=== PATIENT | male | born 1965 | race Caucasian/White ===

== ENCOUNTER 2021-02-06 11:23 | Outpatient (REF) | payer OTHER, SELFPAY ==
[2021-02-06 13:54] LABS: MANUAL DIFF FLAG NO
[2021-02-06 14:04] LABS: Basophils Absolute Auto 0.1 X10*3/uL (0.0-0.2); Basophils Percent Auto 1.2 % (0-2); Eosinophils Absolute Auto 0.3 X10*3/uL (0.0-0.4); Eosinophils Percent Auto 3.6 % (0-4); Hematocrit 45.4 % (42-52); Hemoglobin 15.3 g/dl (14.0-18.0); Imm Gran Abs Auto 0.03 X10*3/uL (0.00-0.03); Imm Gran Pct Auto 0.4 % (0.0-0.4); Lymphocytes Absolute Auto 1.9 X10*3/uL (1.2-4.9); Lymphocytes Percent Auto 23.8 % (20-40); Mean Corpuscular HGB Conc 33.7 g/dl (31.0-36.0); Mean Corpuscular Hemoglobin 32.2 pg (27.0-33.0); Mean Corpuscular Volume 95.6 fL (80-98); Mean Platelet Volume 12.5 fL (9.4-12.4); Monocytes Percent Auto 12.5 % (2-11); Neutrophils Absolute Auto 4.8 X10*3/uL (2.0-8.3); Neutrophils Percent Auto 58.5 % (45-73); Platelet Count 272 X10*3/uL (160-400); Red Blood Count 4.75 X10*6/uL (4.60-5.80); Red Cell Distribution Width 12.1 % (11.0-16.0); White Blood Count 8.1 X10*3/uL (4.8-10.8)
[2021-02-06 14:29] LABS: Valproate 14.5 mcg/mL (50.0-100.0)
[2021-02-06 14:42] LABS: Alanine Aminotransferase 33 U/L (0-40); Albumin Level 4.5 g/dL (3.5-5.0); Alkaline Phosphatase 74 U/L (39-117); Anion Gap 17 (12-20); Aspartate Amino Transferase 28 U/L (5-37); Bilirubin Total 0.6 mg/dL (0.0-1.0); Blood Urea Nitrogen 17 mg/dL (9-16); Calcium 10.1 mg/dL (8.4-10.2); Carbon Dioxide 24 mmol/L (22-29); Chloride 105 mmol/L (96-108); Cholesterol 235 mg/dL; Estimated Glomerular Filt Rate > 60; Gamma Glutamyl Transpeptidase 208 U/L (11-51); Glucose Fasting 101 mg/dL (60-99); HDL Cholesterol 35 mg/dL; LDL Cholesterol Calculated 138 mg/dl; Potassium 4.6 mmol/L (3.3-5.1); Sodium 141 mmol/L (135-145); Total Protein 7.3 g/dL (6.5-8.0); Triglycerides 313 mg/dL
[2021-02-06 15:00] LABS: Folate 5.9 ng/mL (> or = 4.0); Vitamin B12 397 pg/mL (200-900)
== END 2021-02-06 11:24 | disposition home or self-care (01) ==
LOC: HO.HMGCLDS 11:23
PROVIDERS: PCP Internal Medicine; Visit Provider Nurse Practitioner Psychiatric/Mental Health
DX: F31.4 Bipolar disorder, current episode depressed, severe, without psychotic features (principal); Z79.899 Other long term (current) drug therapy
CPT/HCPCS: 36415; 80053; 80061; 80164; 82607; 82746; 82977; 85025

== ENCOUNTER 2021-06-03 07:26 | Outpatient (REF) | payer OTHER, SELFPAY ==
[2021-06-03 11:31] LABS: MANUAL DIFF FLAG NO
[2021-06-03 11:37] LABS: Basophils Absolute Auto 0.1 X10*3/uL (0.0-0.2); Basophils Percent Auto 1.1 % (0-2); Eosinophils Absolute Auto 0.3 X10*3/uL (0.0-0.4); Eosinophils Percent Auto 4.2 % (0-4); Hematocrit 48.5 % (42-52); Hemoglobin 16.5 g/dl (14.0-18.0); Imm Gran Abs Auto 0.02 X10*3/uL (0.00-0.03); Imm Gran Pct Auto 0.3 % (0.0-0.4); Lymphocytes Absolute Auto 2.1 X10*3/uL (1.2-4.9); Mean Corpuscular Hemoglobin 32.3 pg (27.0-33.0); Mean Corpuscular Volume 94.9 fL (80-98); Mean Platelet Volume 12.7 fL (9.4-12.4); Monocytes Absolute Auto 0.8 X10*3/uL (0.1-1.2); Monocytes Percent Auto 13.1 % (2-11); Neutrophils Percent Auto 48.3 % (45-73); Platelet Count 235 X10*3/uL (160-400); Red Blood Count 5.11 X10*6/uL (4.60-5.80); Red Cell Distribution Width 12.7 % (11.0-16.0); White Blood Count 6.3 X10*3/uL (4.8-10.8)
[2021-06-03 11:58] LABS: Alanine Aminotransferase 31 U/L (0-40); Albumin Level 4.4 g/dL (3.5-5.0); Alkaline Phosphatase 64 U/L (39-117); Anion Gap 17 (12-20); Aspartate Amino Transferase 28 U/L (5-37); Bilirubin Total 0.6 mg/dL (0.0-1.0); Blood Urea Nitrogen 20 mg/dL (9-16); Calcium 9.9 mg/dL (8.4-10.2); Carbon Dioxide 25 mmol/L (22-29); Chloride 104 mmol/L (96-108); Cholesterol 238 mg/dL; Estimated Glomerular Filt Rate > 60; Gamma Glutamyl Transpeptidase 39 U/L (11-51); Glucose Fasting 93 mg/dL (60-99); HDL Cholesterol 44 mg/dL; LDL Cholesterol Calculated 172 mg/dl; Potassium 4.5 mmol/L (3.3-5.1); Sodium 141 mmol/L (135-145); Total Protein 7.2 g/dL (6.5-8.0); Triglycerides 113 mg/dL
[2021-06-03 11:59] LABS: Valproate 44.3 mcg/mL (50.0-100.0)
== END 2021-06-03 07:27 | disposition home or self-care (01) ==
LOC: HO.HMGCLDS 07:26
PROVIDERS: PCP Internal Medicine; Visit Provider Nurse Practitioner Psychiatric/Mental Health
DX: F31.4 Bipolar disorder, current episode depressed, severe, without psychotic features (principal)
CPT/HCPCS: 36415; 80053; 80061; 80164; 82977; 85025

== ENCOUNTER 2021-07-22 06:30 | Outpatient (REF) | payer OTHER, SELFPAY ==
[2021-07-22 11:57] LABS: Valproate 28.1 mcg/mL (50.0-100.0)
[2021-07-22 11:59] LABS: Alanine Aminotransferase 25 U/L (0-40); Albumin Level 4.2 g/dL (3.5-5.0); Alkaline Phosphatase 69 U/L (39-117); Aspartate Amino Transferase 22 U/L (5-37); Bilirubin Direct 0.2 mg/dL (0.0-0.5); Bilirubin Total 0.3 mg/dL (0.0-1.0)
== END 2021-07-22 06:31 | disposition home or self-care (01) ==
LOC: HO.HMGCLDS 06:30
PROVIDERS: PCP Internal Medicine; Visit Provider Nurse Practitioner Psychiatric/Mental Health
DX: F31.4 Bipolar disorder, current episode depressed, severe, without psychotic features (principal)
CPT/HCPCS: 36415; 80076; 80164

== ENCOUNTER 2021-09-24 12:32 | Outpatient (REF) | payer OTHER, SELFPAY ==
[2021-09-24 14:34] LABS: Valproate 86.9 mcg/mL (50.0-100.0)
== END 2021-09-24 12:33 | disposition home or self-care (01) ==
LOC: HO.HMGCLDS 12:32
PROVIDERS: PCP Internal Medicine; Visit Provider Nurse Practitioner Psychiatric/Mental Health
DX: F31.4 Bipolar disorder, current episode depressed, severe, without psychotic features (principal); Z79.899 Other long term (current) drug therapy
CPT/HCPCS: 36415; 80164

== ENCOUNTER 2021-12-31 08:46 | Outpatient (REF) | payer OTHER, SELFPAY ==
[2021-12-31 11:42] LABS: MANUAL DIFF FLAG NO
[2021-12-31 11:57] LABS: Basophils Absolute Auto 0.1 X10*3/uL (0.0-0.2); Basophils Percent Auto 1.1 % (0-2); Eosinophils Absolute Auto 0.2 X10*3/uL (0.0-0.4); Eosinophils Percent Auto 2.5 % (0-4); Hematocrit 45.7 % (42.0-52.0); Hemoglobin 15.3 g/dl (14.0-18.0); Imm Gran Abs Auto 0.04 X10*3/uL (0.00-0.03); Imm Gran Pct Auto 0.7 % (0.0-0.4); Lymphocytes Absolute Auto 1.7 X10*3/uL (1.2-4.9); Mean Corpuscular HGB Conc 33.5 g/dl (31.0-36.0); Mean Corpuscular Hemoglobin 33.2 pg (27.0-33.0); Mean Corpuscular Volume 99.1 fL (80.0-98.0); Mean Platelet Volume 12.3 fL (9.4-12.4); Monocytes Absolute Auto 0.7 X10*3/uL (0.1-1.2); Neutrophils Absolute Auto 3.5 x10*3/uL (2.0-8.3); Neutrophils Percent Auto 56.7 % (45-73); Platelet Count 208 X10*3/uL (160-400); Red Blood Count 4.61 X10*6/uL (4.60-5.80); Red Cell Distribution Width 12.1 % (11.0-16.0); White Blood Count 6.1 X10*3/uL (4.8-10.8)
[2021-12-31 12:20] LABS: Alanine Aminotransferase 22 U/L (0-40); Albumin Level 4.3 g/dL (3.5-5.0); Alkaline Phosphatase 64 U/L (39-117); Anion Gap 15 (12-20); Aspartate Amino Transferase 30 U/L (5-37); Bilirubin Direct 0.3 mg/dL (0.0-0.5); Bilirubin Total 0.7 mg/dL (0.0-1.0); Blood Urea Nitrogen 28 mg/dL (9-16); Calcium 9.9 mg/dL (8.4-10.2); Carbon Dioxide 23 mmol/L (22-29); Chloride 106 mmol/L (96-108); Estimated Glomerular Filt Rate > 60; Gamma Glutamyl Transpeptidase 66 U/L (11-51); Glucose Random 115 mg/dL (60-115); Potassium 4.4 mmol/L (3.3-5.1); Sodium 140 mmol/L (135-145); Total Protein 7.3 g/dL (6.5-8.0)
[2021-12-31 12:59] LABS: Folate 6.8 ng/mL (> or = 4.0); Vitamin B12 339 pg/mL (200-900)
== END 2021-12-31 08:47 | disposition home or self-care (01) ==
LOC: HO.HMGCLDS 08:46
PROVIDERS: Visit Provider Nurse Practitioner Psychiatric/Mental Health
DX: F31.4 Bipolar disorder, current episode depressed, severe, without psychotic features (principal)
CPT/HCPCS: 36415; 80053; 82248; 82607; 82746; 82977; 85025

== ENCOUNTER 2022-04-29 07:10 | Outpatient (REF) | payer OTHER, SELFPAY ==
[2022-04-29 11:16] LABS: MANUAL DIFF FLAG NO
[2022-04-29 11:36] LABS: Basophils Absolute Auto 0.1 X10*3/uL (0.0-0.2); Basophils Percent Auto 0.9 % (0-2); Eosinophils Absolute Auto 0.2 X10*3/uL (0.0-0.4); Eosinophils Percent Auto 2.8 % (0-4); Hematocrit 44.9 % (42.0-52.0); Hemoglobin 15.2 g/dl (14.0-18.0); Imm Gran Abs Auto 0.06 X10*3/uL (0.00-0.03); Imm Gran Pct Auto 0.8 % (0.0-0.4); Lymphocytes Absolute Auto 2.2 X10*3/uL (1.2-4.9); Mean Corpuscular HGB Conc 33.9 g/dl (31.0-36.0); Mean Corpuscular Hemoglobin 33.3 pg (27.0-33.0); Mean Corpuscular Volume 98.2 fL (80.0-98.0); Mean Platelet Volume 11.9 fL (9.4-12.4); Monocytes Absolute Auto 0.9 X10*3/uL (0.1-1.2); Neutrophils Absolute Auto 4.4 x10*3/uL (2.0-8.3); Neutrophils Percent Auto 55.5 % (45-73); Platelet Count 231 X10*3/uL (160-400); Red Blood Count 4.57 X10*6/uL (4.60-5.80); Red Cell Distribution Width 12.3 % (11.0-16.0); White Blood Count 7.9 X10*3/uL (4.8-10.8)
[2022-04-29 11:41] LABS: Estimated Average Glucose 97 mg/dL
[2022-04-29 12:00] LABS: TSH reflex Free T4 4.26 uIU/mL (0.32-4.0); Vitamin D 25-OH Total 36.3 ng/mL (>30)
[2022-04-29 12:04] LABS: Alanine Aminotransferase 13 U/L (0-40); Albumin Level 4.2 g/dL (3.5-5.0); Alkaline Phosphatase 52 U/L (39-117); Anion Gap 14 (12-20); Aspartate Amino Transferase 17 U/L (5-37); Bilirubin Direct 0.2 mg/dL (0.0-0.5); Bilirubin Total 0.5 mg/dL (0.0-1.0); Blood Urea Nitrogen 31 mg/dL (9-16); Calcium 9.6 mg/dL (8.4-10.2); Carbon Dioxide 23 mmol/L (22-29); Chloride 108 mmol/L (96-108); Cholesterol 220 mg/dL; Estimated Glomerular Filt Rate 60; Gamma Glutamyl Transpeptidase 67 U/L (11-51); Glucose Fasting 99 mg/dL (60-99); HDL Cholesterol 47 mg/dL; LDL Cholesterol Calculated 156 mg/dl; Potassium 4.7 mmol/L (3.3-5.1); Sodium 140 mmol/L (135-145); Triglycerides 87 mg/dL
[2022-04-29 12:13] LABS: Valproate 31.4 mcg/mL (50.0-100.0)
[2022-04-29 12:17] LABS: Folate 5.6 ng/mL (> or = 4.0); Vitamin B12 447 pg/mL (200-900)
== END 2022-04-29 07:11 | disposition home or self-care (01) ==
LOC: HO.HMGCLDS 07:10
PROVIDERS: PCP Internal Medicine; Visit Provider Nurse Practitioner Psychiatric/Mental Health
DX: F31.4 Bipolar disorder, current episode depressed, severe, without psychotic features (principal); Z79.899 Other long term (current) drug therapy
CPT/HCPCS: 36415; 80053; 80061; 80076; 80164; 82248; 82306; 82607; 82746; 82977; 83036; 84439; 84443; 85025

== ENCOUNTER 2022-09-16 15:25 | Outpatient (REF) | payer OTHER, SELFPAY ==
[2022-09-16 16:30] LABS: MANUAL DIFF FLAG NO
[2022-09-16 16:34] LABS: Basophils Absolute Auto 0.1 X10*3/uL (0.0-0.2); Basophils Percent Auto 0.8 % (0-2); Eosinophils Absolute Auto 0.2 X10*3/uL (0.0-0.4); Hematocrit 43.9 % (42.0-52.0); Hemoglobin 15.3 g/dl (14.0-18.0); Imm Gran Abs Auto 0.04 X10*3/uL (0.00-0.03); Imm Gran Pct Auto 0.6 % (0.0-0.4); Lymphocytes Percent Auto 31.4 % (20-40); Mean Corpuscular HGB Conc 34.9 g/dl (31.0-36.0); Mean Corpuscular Hemoglobin 33.4 pg (27.0-33.0); Mean Corpuscular Volume 95.9 fL (80.0-98.0); Mean Platelet Volume 12.1 fL (9.4-12.4); Monocytes Absolute Auto 0.7 X10*3/uL (0.1-1.2); Monocytes Percent Auto 10.9 % (2-11); Neutrophils Absolute Auto 3.3 x10*3/uL (2.0-8.3); Neutrophils Percent Auto 53.3 % (45-73); Platelet Count 211 X10*3/uL (160-400); Red Blood Count 4.58 X10*6/uL (4.60-5.80); Red Cell Distribution Width 12.6 % (11.0-16.0); White Blood Count 6.3 X10*3/uL (4.8-10.8)
[2022-09-16 17:27] LABS: Alanine Aminotransferase 36 U/L (0-40); Albumin Level 4.3 g/dL (3.5-5.0); Alkaline Phosphatase 48 U/L (39-117); Anion Gap 14 (12-20); Aspartate Amino Transferase 33 U/L (5-37); Bilirubin Direct < 0.2 mg/dL (0.0-0.5); Bilirubin Total 0.4 mg/dL (0.0-1.0); Blood Urea Nitrogen 22 mg/dL (9-16); Calcium 10.2 mg/dL (8.4-10.2); Carbon Dioxide 27 mmol/L (22-29); Chloride 106 mmol/L (96-108); Estimated Glomerular Filt Rate > 60; Gamma Glutamyl Transpeptidase 40 U/L (11-51); Glucose Random 87 mg/dL (60-115); Potassium 4.7 mmol/L (3.3-5.1); Sodium 142 mmol/L (135-145); TSH reflex Free T4 0.83 uIU/mL (0.32-4.0); Total Protein 6.8 g/dL (6.5-8.0); Valproate 95.4 mcg/mL (50.0-100.0)
== END 2022-09-16 15:26 | disposition home or self-care (01) ==
LOC: HO.HMGCLDS 15:25
PROVIDERS: Visit Provider Nurse Practitioner Psychiatric/Mental Health
DX: F31.4 Bipolar disorder, current episode depressed, severe, without psychotic features (principal); Z79.899 Other long term (current) drug therapy
CPT/HCPCS: 36415; 80053; 80164; 82248; 82977; 84443; 85025

== ENCOUNTER 2023-01-19 14:02 | Outpatient (REF) | payer OTHER, SELFPAY ==
[2023-01-19 16:12] LABS: MANUAL DIFF FLAG NO
[2023-01-19 16:19] LABS: Basophils Absolute Auto 0.1 X10*3/uL (0.0-0.2); Eosinophils Absolute Auto 0.3 X10*3/uL (0.0-0.4); Eosinophils Percent Auto 3.1 % (0-4); Hematocrit 42.1 % (42.0-52.0); Hemoglobin 14.6 g/dl (14.0-18.0); Imm Gran Abs Auto 0.02 X10*3/uL (0.00-0.03); Imm Gran Pct Auto 0.2 % (0.0-0.4); Lymphocytes Absolute Auto 2.2 X10*3/uL (1.2-4.9); Lymphocytes Percent Auto 26.5 % (20-40); Mean Corpuscular HGB Conc 34.7 g/dl (31.0-36.0); Mean Corpuscular Hemoglobin 32.4 pg (27.0-33.0); Mean Corpuscular Volume 93.6 fL (80.0-98.0); Mean Platelet Volume 12.4 fL (9.4-12.4); Monocytes Absolute Auto 0.7 X10*3/uL (0.1-1.2); Monocytes Percent Auto 8.6 % (2-11); Neutrophils Absolute Auto 5.1 x10*3/uL (2.0-8.3); Neutrophils Percent Auto 60.6 % (45-73); Platelet Count 209 X10*3/uL (160-400); Red Cell Distribution Width 12.4 % (11.0-16.0); White Blood Count 8.3 X10*3/uL (4.8-10.8)
[2023-01-19 16:33] LABS: Alanine Aminotransferase 37 U/L (0-40); Albumin Level 4.5 g/dL (3.5-5.0); Alkaline Phosphatase 75 U/L (39-117); Anion Gap 14 (12-20); Aspartate Amino Transferase 34 U/L (5-37); Bilirubin Direct 0.2 mg/dL (0.0-0.5); Bilirubin Total 1.2 mg/dL (0.0-1.0); Blood Urea Nitrogen 30 mg/dL (9-16); Calcium 9.9 mg/dL (8.4-10.2); Carbon Dioxide 23 mmol/L (22-29); Chloride 108 mmol/L (96-108); Estimated Glomerular Filt Rate > 60; Gamma Glutamyl Transpeptidase 154 U/L (11-51); Glucose Random 93 mg/dL (60-115); Potassium 4.5 mmol/L (3.3-5.1); Sodium 140 mmol/L (135-145); Total Protein 7.1 g/dL (6.5-8.0)
[2023-01-19 18:41] LABS: Valproate 12.5 mcg/mL (50.0-100.0)
== END 2023-01-19 14:03 | disposition home or self-care (01) ==
LOC: HO.HMGCLDS 14:02
PROVIDERS: PCP Internal Medicine; Visit Provider Nurse Practitioner Psychiatric/Mental Health
DX: F31.4 Bipolar disorder, current episode depressed, severe, without psychotic features (principal); Z79.899 Other long term (current) drug therapy
CPT/HCPCS: 36415; 80053; 80164; 82248; 82977; 85025

== ENCOUNTER 2023-06-25 07:50 | Outpatient (REF) | payer OTHER, SELFPAY ==
[2023-06-25 11:56] LABS: Gamma Glutamyl Transpeptidase 93 U/L (11-51)
[2023-06-25 12:05] LABS: Valproate 103.5 mcg/mL (50.0-100.0)
== END 2023-06-25 07:51 | disposition home or self-care (01) ==
LOC: HO.HMGCLDS 07:50
PROVIDERS: PCP Internal Medicine; Visit Provider Nurse Practitioner Psychiatric/Mental Health
DX: F31.4 Bipolar disorder, current episode depressed, severe, without psychotic features (principal); Z79.899 Other long term (current) drug therapy
CPT/HCPCS: 36415; 80164; 82977

== ENCOUNTER 2024-12-19 08:50 | Outpatient (REF) | payer OTHER, SELFPAY ==
--- OUTSIDE RECORDS SUMMARY | 2024-12-19 09:20 | XMS_ITS | Clinical Summary ---
Author Organization [facility] Address [id number] [place] [id number] Care Team Providers Care Bulk Plant Agent Name Role Phone Celsa Herrera MD Primary Care Provider [phone] Allergies Active Allergy Reactions Criticality Noted Date Comments Bee Venom Protein (Honey Bee) Anaphylaxis High 05/16 Medications sertraline (ZOLOFT) 100 mg tablet Take 2 tablets (200 mg total) by mouth 1 (one) time each day. Active simvastatin (ZOCOR) 20 mg tablet Take 1 tablet (20 mg total) by mouth at bedtime. 3 Active diclofenac (VOLTAREN) 75 mg EC tablet Take 1 tablet (75 mg total) by mouth 2 (two) times a day. 3 Active divalproex (DEPAKOTE) [address] tablet TAKE 1 TABLET BY MOUTH AT BEDTIME TAKE WITH TWO 500MG TABLETS FOR TOTAL NIGHTTIME DOSE OF 1250 2 Active QUEtiapine (SEROquel) 50 mg tablet Take 1 Tablet by mouth. 2 -3 times Daily 2 Active buPROPion XL (WELLBUTRIN XL) 300 mg 24 hr tablet Take 1 tablet (300 mg total) by mouth 1 (one) time each day in the morning. 2 Active hydrOXYzine HCL (ATARAX) 50 mg tablet Take 1 tablet (50 mg total) by mouth at bedtime. 2 Active ramelteon (ROZEREM) 8 mg tablet Take 1 tablet (8 mg total) by mouth at bedtime. Active Active Problems Problem Noted Date Diagnosed Date Bipolar disorder 10/06/2024 H/O: suicide attempt 10/06/2024 Overview (10/06/2024): H/O: multiple suicide attempts usually by overdosing on medications Coronary atherosclerosis 04/01/2023 Overview (10/06/2024): Noted on LDCT (March 2023) Obesity (BMI 30.0-34.9) 10/10/2022 Tubular adenoma 10/10/2022 Overview (10/06/2024): February 2018 - repeat due in 3 years 06/10 tubular adenoma - repeat 5 years Alcohol abuse 10/10/2022 Marijuana use 10/10/2022 Ulnar neuropathy of right upper extremity 2017 Erectile dysfunction 12/24/2017 HTN (hypertension) 05/18/2014 Hypercholesterolemia 05/03/2014 Immunizations Name Administration Dates Next Due Tdap Tetanus diptheria acell ular pertussis (Boostrix; Adacel) 7yo and older 10/10/2022,05/09/2011 Surgical History Surgery Date Site/Laterality Comments WRIST SURGERY Right PROCEDURE: HISTORICAL WRIST SURGERY WISDOM TOOTH EXTRACTION PROCEDURE: HISTORICAL WISDOM TEETH EXTRACTION COLONOSCOPY 03/18/2018 PROCEDURE: HISTORICAL COLONOSCOPY; COMMENT: adenomas; repeat in 3 yrs ELBOW SURGERY Right PROCEDURE: HISTORICAL ELBOW SURGERY; COMMENT: ulnar nerve COLONOSCOPY 05/2023 PROCEDURE: HISTORICAL COLONOSCOPY; COMMENT: repeat 5 years Medical History Medical History Date Comments Bipolar disorder ([facility]/HCC) DX:Bi polar disorder ([facility]) H/O: suicide attempt DX:H/O: shanell cide attempt Unspecified essential hypertension DX:Unspecified essential hypertension Erectile dysfunction 12/24/2017 DX:Erectile dysfunction Social History Tobacco Use Types Packs/Day Years Used Date Smoking Tobacco: Former Cigarettes Q uit: 10/19/2014 Smokeless Tobacco: Never Alcohol Use Standard Drinks/Week Comments Yes 0 (1 standard drink = 0.6 oz pur e alcohol) Sex and Gender Information Value Date Recorded Sex Assigned at Not on file Legal Sex Male 3:23 PM EST Gender Identity Not on file Sexual Orientation Not on file Obstetrics History Last Filed Vital Signs Vital Sign Reading Time Taken Comments Blood Pressure 134/70 10/13/2023 8:50 AM EST Pulse 88 10/13/2023 8:50 AM EST Temperature - - Respiratory Rate - - Oxygen Saturation - - Inhaled Oxygen Concentration - - Weight 101 kg (223 lb) 10/13/2023 8:50 AM EST Height 180.3 cm (5' 11 ) 10/13/2023 8:50 AM EST Body Mass Index 31.1 10/13/2023 8:50 AM EST Plan of Treatment Health Maintenance Due Date Last Done Comments Hepatitis A Vaccines (1 of 2 - Risk 2-dose series) 01/12/1984 Hepatitis B Vaccines (1 of 3 - 19+ 3-dose series) 01/12/1984 Pneumococcal Vaccine: 50+ Years (1 of 1 - PCV) 2015 Zoster Vaccines (1 of 2) 2015 Colorectal Cancer Screening: Colonoscopy 10/10/2022 Depression Screening 10/10/2022 HIV Screening 10/10/2022 Social Influencers of Health Screening 10/10/2022 Hypertension/CHF/CAD Annual BMP Blood Test 12/04/2023 12/04/2022 COVID-19 Vaccine (3 - 2023-2 5 season) 2024 04/12/2021, 03/11/2021 Influenza Vaccine (#1) 2024 Cholesterol Screening (Lipid Panel) 10/13/2028 10/13/2023 DTaP,Tdap,and Td Vaccines (3 - Td or Tdap) 10/10/2032 10/10/2022, 05/09/2011 RSV Immunization Patients 60 + Years Old (1 - 1-dose 75+ series) 01/12/2040 Hepatitis C Screening Completed 05/03/2014 HIB Vaccines Aged Out No longer eligi ble based on patient's age to complete this topic HPV Vaccines Aged Out No longer eligi ble based on patient's age to complete this topic IPV Vaccines Aged Out No longer eligi ble based on patient's age to complete this topic MMR Vaccines Aged Out No longer eligi ble based on patient's age to complete this topic Meningococcal ACWY Vaccine Aged Out N o longer eligible based on patient's age to complete this topic Meningococcal B Vacine Aged Out No lo nger eligible based on patient's age to complete this topic Pneumococcal Vaccine: Pediatrics (0 to 5 Years) and At-Risk Patients (6 to 64 Years) Aged Out No longer eligible b ased on patient's age to complete this topic RSV Immunization Patients Under 20 months Aged Out No longer eligible b ased on patient's age to complete this topic Varicella Vaccines Aged Out No longer eligible based on patient's age to complete this topic Procedures Procedure Name Priority Date/Time Associated Diagnosis Comments LIPID PANEL Routine 10/13/2023 ANNUAL BMP BLOOD TEST Routine 12/04/2022 HEPATITIS C SCREENING Routine 05/03/2014 from Last 3 Months or Most Recently Relevant to Health Maintenance Results * (ABNORMAL) Lipid panel (10/13/2023) [facility] LDL/HDL Ratio 4 0 - 4 Triglycerides 109 0 - 150 mg/dL Cholesterol 183 0 - 200 mg/dL HDL 52 >=40 mg/dL LDL Cholesterol 110(A) 0 - 100 mg/dL Blood Venous blood specimen / Unknown Historical Provider LAB BLOOD ORDERABLES Lynn l Result * Annual BMP Blood Test (12/04/2022) Pathologist [facility] Annual BMP Blood Test abstracted Historical Provider HEALTH MAINTENANCE Final Result * Hepatitis C Screening (05/03/2014) [facility] Hepatitis C Screening abstracted Historical Provider HEALTH MAINTENANCE Final Result from Last 3 Months or Most Recently Relevant to Health Maintenance Care Teams Bulk Plant Agent Relationship Specialty Start Date End Date Celsa Herrera MD [address] [place] [id number] PCP - General 07/10/11
[2024-12-19 10:18] LABS: MANUAL DIFF FLAG NO
[2024-12-19 10:29] LABS: Basophils Absolute Auto 0.1 X10*3/uL (0.0-0.2); Basophils Percent Auto 1.3 % (0-2); Eosinophils Absolute Auto 0.3 X10*3/uL (0.0-0.4); Eosinophils Percent Auto 3.5 % (0-4); Hematocrit 46.8 % (42.0-52.0); Hemoglobin 16.2 g/dl (14.0-18.0); Imm Gran Abs Auto 0.07 X10*3/uL (0.00-0.03); Imm Gran Pct Auto 0.9 % (0.0-0.4); Lymphocytes Absolute Auto 2.1 X10*3/uL (1.2-4.9); Lymphocytes Percent Auto 27.3 % (20-40); Mean Corpuscular HGB Conc 34.6 g/dl (31.0-36.0); Mean Corpuscular Hemoglobin 33.1 pg (27.0-33.0); Mean Corpuscular Volume 95.7 fL (80.0-98.0); Mean Platelet Volume 11.5 fL (9.4-12.4); Monocytes Absolute Auto 0.7 X10*3/uL (0.1-1.2); Monocytes Percent Auto 9.6 % (2-11); Neutrophils Absolute Auto 4.4 x10*3/uL (2.0-8.3); Neutrophils Percent Auto 57.4 % (45-73); Platelet Count 243 X10*3/uL (160-400); Red Blood Count 4.89 X10*6/uL (4.60-5.80); White Blood Count 7.7 X10*3/uL (4.8-10.8)
[2024-12-19 10:46] LABS: Estimated Average Glucose 103 mg/dL; Hemoglobin A1C 139.4218 umol/L; Hemoglobin A1c % 5.2 % (<6.0); Total Hemoglobin (HGBA1C) 4156.2284 umol/L
[2024-12-19 11:17] LABS: Valproate 89.6 mcg/mL (50.0-100.0)
[2024-12-19 11:30] LABS: Alanine Aminotransferase 36 U/L (0-40); Albumin Level 4.2 g/dL (3.5-5.0); Alkaline Phosphatase 56 U/L (39-117); Anion Gap 14 (12-20); Aspartate Amino Transferase 29 U/L (5-37); Bilirubin Total 0.6 mg/dL (0.0-1.0); Blood Urea Nitrogen 20 mg/dL (9-16); Calcium 9.4 mg/dL (8.4-10.2); Carbon Dioxide 24 mmol/L (22-29); Chloride 108 mmol/L (96-108); Cholesterol 275 mg/dL (<200); Estimated Glomerular Filt Rate > 60; Gamma Glutamyl Transpeptidase 146 U/L (11-51); Glucose Fasting 118 mg/dL (60-99); HDL Cholesterol 46 mg/dL (>40); LDL Cholesterol Calculated 192 mg/dL (<100); Potassium 4.2 mmol/L (3.3-5.1); Sodium 142 mmol/L (135-145); Total Protein 7.6 g/dL (6.5-8.0); Triglycerides 187 mg/dL (<150); Vitamin D 25-OH Total 23.3 ng/mL (>30)
[2024-12-19 11:42] LABS: Vitamin B12 416 pg/mL (200-900)
== END 2024-12-19 08:51 | disposition home or self-care (01) ==
LOC: HO.HMGCLDS 08:50
PROVIDERS: PCP Internal Medicine; Visit Provider Nurse Practitioner Psychiatric/Mental Health
DX: Z79.899 Other long term (current) drug therapy (principal)
CPT/HCPCS: 36415; 80053; 80061; 80164; 82306; 82607; 82746; 82977; 83036; 85025

== ENCOUNTER 2025-08-22 09:32 | Outpatient (REF) | payer OTHER, SELFPAY ==
--- OUTSIDE RECORDS SUMMARY | 2025-08-22 10:48 | XMS_ITS | Clinical Summary ---
Author Organization [facility] Address [id number] [place] [id number] Care Team Providers Care Hog Handler Name Role Phone Celsa Herrera MD Primary Care Provider [phone] Allergies Active Allergy Reactions Criticality Noted Date [...] Problem Noted Date Diagnosed Date Bipolar disorder (CMS/HCC V24, CMS/HCC V28) 09/18 H/O: suicide attempt 10/06/2024 Overview (10/06/2024): H/O: [...] 12/24/2017 HTN (hypertension) 05/18/2014 Hypercholesterolemia 05/03/2014 Immunizations Immunization Administration Dates Next Due Tdap Tetanus diptheria [...] History Medical History Date Comments Bipolar disorder ([facility] V2 4, [facility] V28) DX:Bipolar disorder ([facility]) H/O: suicide attempt DX:H/O: shanell cide attempt [...] Health Maintenance Due Date Last Done Comments Colorectal Cancer Screening: Colonoscopy 1965 Hepatitis A Vaccines (1 of 2 - Risk 2-dose series) 01/12/1984 Pneumococcal Vaccine: 50+ Years (1 of 1 - PCV) 2015 Zoster Vaccines (1 of 2) 2015 HIV Screening 10/10/2022 Social Influencers of Health Screening 10/10/2022 Hypertension/CHF/CAD Annual BMP Blood Test 12/04/2023 12/04/2022 Depression Screening 10/19/2024 COVID-19 Vaccine (3 - 2024-2 6 season) 2025 04/12/2021, 03/11/2021 Influenza Vaccine (#1) 2025 Cholesterol Screening (Lipid Panel) 10/13/2028 10/13/2023 DTaP,Tdap,and Td Vaccines (3 - Td or Tdap) 10/10/2032 10/10/2022, 05/09/2011 RSV Immunization Adult Patients (1 - 1-dose 75+ series) 01/12/2040 Hepatitis C Screening Completed 05/03/2014 HIB Vaccines Aged Out No longer eligi ble based on patient's age to complete this topic HPV Vaccines Aged Out No longer eligi ble based on patient's age to complete this topic Hepatitis B Vaccines Aged Out No long er eligible based on patient's age to complete this topic IPV Vaccines Aged Out No longer eligi ble based on patient's age to complete this topic MMR Vaccines Aged Out No longer eligi ble based on patient's age to complete this topic Meningococcal ACWY Vaccine Aged Out N o longer eligible based on patient's age to complete this topic Meningococcal B Vaccine Aged Out No l onger eligible based on patient's age to complete [...] Maintenance Results * (ABNORMAL) Lipid panel (10/13/2023) LDL/HDL Ratio 4 0 - 4 Triglycerides 109 0 - 150 mg/dL Cholesterol 183 0 - 200 mg/dL HDL 52 >=40 mg/dL LDL Cholesterol 110(A) 0 - 100 mg/dL Blood Venous blood specimen / Unknown Historical Provider LAB BLOOD ORDERABLES Lynn l Result * Annual BMP Blood Test (12/04/2022) Annual BMP Blood Test abstracted Historical Provider HEALTH MAINTENANCE Final Result * Hepatitis C Screening (05/03/2014) Pathologist [facility] Hepatitis C Screening abstracted Historical Provider HEALTH MAINTENANCE Final Result from Last 3 Months or Most Recently Relevant to Health Maintenance Care Teams Hog Handler Relationship Specialty Start Date End Date Celsa Herrera MD [address] [place] [phone] PCP - General 07/10/11
--- OUTSIDE RECORDS SUMMARY | 2025-08-22 10:48 | XMS_ITS ---
Author Name [facility] Organization Unknown Care Team Organization Name Specialty Phone Email Start Date End Da te [facility] Celsa Herrera Primary Care 08/26/2022 4
[2025-08-22 13:21] LABS: MANUAL DIFF FLAG NO
[2025-08-22 13:24] LABS: Hematocrit 46.9 % (42.0-52.0); Hemoglobin 16.0 g/dl (14.0-18.0); Imm Gran Abs Auto 0.03 X10*3/uL (0.00-0.03); Imm Gran Pct Auto 0.4 % (0.0-0.4); Lymphocytes Absolute Auto 1.6 X10*3/uL (1.2-4.9); Mean Corpuscular HGB Conc 34.1 g/dl (31.0-36.0); Mean Corpuscular Hemoglobin 32.3 pg (27.0-33.0); Mean Corpuscular Volume 94.7 fL (80.0-98.0); NRBC Abs Auto 0.000 X10*3/uL (0.0-0.012); NRBC Pct Auto 0.0 /100WBC (0.0-0.2); Platelet Count 247 X10*3/uL (160-400); Red Blood Count 4.95 X10*6/uL (4.60-5.80); White Blood Count 6.8 X10*3/uL (4.8-10.8)
[2025-08-22 13:37] LABS: Alanine Aminotransferase 28 U/L (0-40); Albumin Level 4.6 g/dL (3.5-5.0); Alkaline Phosphatase 58 U/L (39-117); Anion Gap 10 (12-20); Aspartate Amino Transferase 32 U/L (5-37); Blood Urea Nitrogen 26 mg/dL (9-16); Calcium 9.7 mg/dL (8.4-10.2); Carbon Dioxide 25 mmol/L (22-29); Chloride 110 mmol/L (96-108); Estimated Glomerular Filt Rate > 60; Potassium 4.4 mmol/L (3.3-5.1); Sodium 141 mmol/L (135-145); Total Protein 7.5 g/dL (6.5-8.0)
[2025-08-22 13:56] LABS: Gamma Glutamyl Transpeptidase 85 U/L (11-51)
== END 2025-08-22 09:33 | disposition home or self-care (01) ==
LOC: HO.HMGCLDS 09:32
PROVIDERS: PCP Internal Medicine; Visit Provider Nurse Practitioner Psychiatric/Mental Health
DX: Z79.899 Other long term (current) drug therapy (principal)
CPT/HCPCS: 36415; 80053; 80164; 82977; 85025